=== PATIENT | male | born 1960 | race Caucasian/White ===

== ENCOUNTER 2022-05-11 01:29 | Day surgery (SDC) | payer OTHER, SELFPAY ==
[2022-04-28 09:02] VITALS: BMI 24.6
[2022-05-11 11:41] VITALS: BP 146/90; PULSE 117; RESP 18; TEMP 36.5; O2SAT 98
[2022-05-11] MEDS: LACTATED RINGERS 1,000 ML 150 ML IV CONT (11:47)
--- NOTE | 2022-05-11 11:49 | PM.HPGS ---
History of Present Illness History of Present Illness Consent: Risks, benefits, and alternatives have been discussed and questions answered. Patient agrees to proceed with procedure. Chief complaint: neoplasm screening Narrative: Alin Jackson is a 61 year old male here for screening colonoscopy, had one about 12 years ago but could not complete, also was told that removed one polyp Review of Systems Constitutional: Constitutional: Denies headache(s) and Denies weakness Eyes: Eyes: Denies blurry vision ENT: Reports Normal hearing present, Denies headache(s) and Denies neck pain Cardiovascular: Cardiovascular: Denies chest pain and Denies dyspnea Respiratory: Respiratory: Denies dyspnea Gastrointestinal: Gastrointestinal: Reports no additional gastrointestinal complaints Genitourinary: Genitourinary: Denies dysuria Musculoskeletal: Musculoskeletal: Denies neck pain Integumentary/Breasts: Skin/Breast: Denies dry skin Neurologic: Reports Normal hearing present, Denies headache(s) and Denies weakness Psychiatric: Psychiatric: Denies anxiety Endocrine: Endocrine: Denies change in body appearance Hematologic/Lymphatic: Hematologic/Lymphatic: Denies easy bleeding Allergic/Immunologic: Allergic/Immunologic: Denies urticaria PMFSH Past Medical History Medical History (Updated 05/11/22 @ 11:50 by Josh Lemus MD) Colon cancer screening Social History Social History Smoking packs per day: 1 Smoking cigarettes per day: 20.0 Smoking status: Current every day smoker Tobacco type: cigarettes Meds Home Medications and Allergies Home Medications Medication Instructions Recorded Confirmed Type diclofenac sodium 75 mg 75 mg PO DAILY 04/28/22 04/28/22 History tablet,delayed release gabapentin 600 mg tablet 600 mg PO DAILY 04/28/22 04/28/22 History Allergies Allergy/AdvReac Type Severity Reaction Status Date / Time No Known Allergies Allergy Mild Verified 05/11/22 11:39 Vital Signs Vital Signs - 24 hr 05/11/22 11:41 Temperature 97.7 F Pulse Rate 117 H Respiratory Rate 18 Blood Pressure 146/90 H Pulse Oximetry 98 Oxygen Delivery Room Air Exam Const: General: comfortable and no acute distress HENMT: Face/Nose/Sinus: Normal nares present Eyes: General: appearance normal, both eyes and all related structures Neck: Neck: no JVD Resp: Auscultation: clear to auscultation bilaterally Cardio: Rate: regular rate Rhythm: regular rhythm GI: Inspection: non-distended GI Palp: Yes Soft to palpation Skin: General skin exam: normal color Neuro: General: gait normal Speech: normal speech Extrem: General: normal to inspection Psych: Mental Status: mental status grossly normal Assessment and Plan Assessment and plan (1) Colon cancer screening: Code(s): Z12.11 - Encounter for screening for malignant neoplasm of colon Status: Acute Assessment and Plan: colonoscopy
--- NOTE | 2022-05-11 11:53 | P.PNAN_ITS ---
Anes - Initial Pre Proc Eval Procedure: Operation Date: 05/11/22 13:30 Proposed Procedures p Screening Colonoscopy - Josh Lemus MD Date/Time: 05/11/22 11:53 Surgeon: Josh Lemus MD Pre Op Diagnosis: neoplasm screening Patient Data Age: 61 Gender: M Height: 1.7 m Weight: 70.2 kg Last Vital Signs Temp 97.7 F 05/11/22 11:41 Pulse 117 H 05/11/22 11:41 Resp 18 05/11/22 11:41 BP 146/90 H 05/11/22 11:41 Pulse Ox 98 05/11/22 11:41 O2 Del Method Room Air 05/11/22 11:41 Allergies Allergy/AdvReac Type Severity Reaction Status Date / Time No Known Allergies Allergy Mild Verified 05/11/22 11:39 Home Medications Medication Instructions Recorded Confirmed Type diclofenac sodium 75 mg 75 mg PO DAILY 04/28/22 04/28/22 History tablet,delayed release gabapentin 600 mg tablet 600 mg PO DAILY 04/28/22 04/28/22 History Patient hx anesthesia problems: none Family hx anesthesia problems: none Results Review: All pre-operative results and documents have been reviewed as part of the pre- operative evaluation. [facility] Past Medical History Medical History (Updated 05/11/22 @ 11:50 by Josh Lemus MD) Colon cancer screening Social History Social History Smoking packs per day: 1 Smoking cigarettes per day: 20.0 Smoking status: Current every day smoker Tobacco type: cigarettes Anes - Eval Final PreProcedure Day of Procedure 05/11/22 11:53 Patient weight: normal Heart: regular rate and rhythm Lungs: clear to auscultation Airway: Mallampati scale class II Neurological: alert and oriented Last oral intake: >/= 8 hours ASA classification: II Emergent: no Anesthetic plan: proceed Anesthesia type and monitoring: general GIVS and standard monitoring Results Review: All pre-operative results and documents have been reviewed as part of the pre- operative evaluation. Informed Consent: The patient's anesthetic plan and its attendant risks and benefits were discussed with the patient/family/POA. Questions were solicited and answers provided to the satisfaction of the patient/family/POA.
[2022-05-11 12:10] VITALS: BP 105/75; PULSE 97; RESP 28; O2SAT 95
[2022-05-11 12:20] VITALS: BP 112/78; PULSE 93; RESP 26; O2SAT 97
[2022-05-11 12:30] VITALS: BP 130/88; PULSE 89; RESP 24; O2SAT 98
== END 2022-05-11 12:50 | disposition home or self-care (01) ==
PROVIDERS: PCP Internal Medicine; Visit Provider Internal Medicine Gastroenterology
PROC: 0DJD8ZZ Inspection of Lower Intestinal Tract, Via Natural or Artificial Opening Endoscopic (ICD-10-PCS; CPT 45378; principal; 2022-05-11 13:30)
DX: Z12.11 Encounter for screening for malignant neoplasm of colon (principal); D12.5 Benign neoplasm of sigmoid colon; K64.8 Other hemorrhoids; F17.210 Nicotine dependence, cigarettes, uncomplicated
CPT/HCPCS: 45385; 88305; 88342; J2704; J7120

== ENCOUNTER 2024-10-06 09:32 | Outpatient (CLI) | payer OTHER, SELFPAY ==
--- NOTE | ~2024-10-06 | XR_ITS ---
XR cervical spine 4-5V 10/06/2024 09:54 Indication: Chronic neck pain Procedure: 5 views cervical spine including flexion/extension views Comparison: No prior studies for comparison. Findings: Accentuated cervical lordosis. Vertebral body heights are maintained. No prevertebral soft tissue swelling. Lung apices are unremarkable. There is carotid atherosclerosis. Lateral masses larry lly aligned. No significant disc narrowing. There is mild multilevel facet hypertrophy. Impression: 1: Mild cervical spondylosis. Reviewed, dictated and finalized at location A. Impression: 1: Mild cervical spondylosis.
--- OUTSIDE RECORDS SUMMARY | 2024-10-06 09:39 | XMS_ITS | CONTINUITY OF CARE DOCUMENT ---
Author Name romario doss Address Unknown Organization [facility] Office Address [address] [place] [address] [address] [place] [address] Phone [phone] Care Team Providers Care Liquor Bridge Operator Helper Name Role Phone Devon Sanchez MD Unavailable [phone] Devon Sanchez MD Unavailable [phone] INSURANCE PROVIDERS Payer name Policy type / Coverage type [place] [employer] [place] MED[place] Medicaid [id number]
--- OUTSIDE RECORDS SUMMARY | 2024-10-06 09:40 | XMS_ITS | Clinical Summary ---
Author Organization [facility] Address [address] [place] [address] Care Team Providers Care Rag Washer Name Role Phone Unavailable Primary Care Provider Unavailabl e Source Comments PLEASE NOTE, if this patient is a minor, it may be UNLAWFUL to discuss sensitive information that is contained in these records (such as FAMILY PLANNING, MENTAL HEALTH or SUBSTANCE ABUSE) with the minor patient's parent or other person without the patient's specific authorization.[facility] Allergies No known active allergies Medications * This document contains information received from the source organization and may not represent a complete record from that organization. escitalopram oxalate (LEXAPRO) 10 mg tablet Take 1 Tab by mouth once daily. Take one half tab for the first week then increase to one full tab. 30 Tab 0 10/31/2014 Active HYDROcodone-kate taminophen (NORCO) 5-325 mg per tablet Take 1 Tab by mouth every 6 (six) hours as needed for pain 06/17/2016 Active Active Problems Problem Noted Date Diagnosed Date Hyperplastic polyp of sigmoid colon 06/04/2016 Overview (06/04/2016): Colonoscopy 05/12/16 - One 5mm polyp in sigmoid resected - path report shows hyperplastic polyp - sharp angulation at 30 cm from anus prevented further advancement. Recommended CT colonography in 1 month for eval of proximal colon. Hemorrhoids, internal 06/04/2016 Overview (06/04/2016): Non bleeding internal hemorrhoids noted on colonoscopy 05/12/16 Herniated lumbar intervertebral disc 01/02/2016 Chronic low back pain 01/02/2016 Depression 10/22/2014 Overview (11/05/2014): Side effects with Citalopram 10mg titrated up to 20mg 10/31/14 started on Escitalopram 5mg titrate up to 10mg History of substance abuse ([facility] 10/22/2014 Overview (10/22/2014): No street drugs since 2009 Tobacco use 10/22/2014 Alcohol use 10/22/2014 Elevated BP 10/22/2014 Immunizations Immunization Administration Dates Next Due TDAP 10/22/2014 Social History Tobacco Use Types Packs/Day Years Used Date Smoking Tobacco: Every Day Cigarettes Smokeless Tobacco: Never Comments:smoke less if worki ng Alcohol Use Standard Drinks/Week Comments Yes 14 (1 standard drink = 0.6 oz pure alcohol) couple beers with shot to help sleep Social Connections Answer Date Recorded Social Connections and Isolation 0 12/24/2018 Financial Resource Strain Answer Date R ecorded Financial Resource Strain 0 2018 Stress Answer Date Recorded Stress 0 12/24/2018 Physical Activity Answer Date Recorded Physical Activity 0 12/24/2018 Food Insecurity Answer Date Recorded Food 0 12/24/2018 Transportation Needs Answer Date Record ed Transportation 0 12/24/2018 Housing Stability Answer Date Recorded Housing 0 12/24/2018 Safety and Environment Answer Date Jai rded Safety 0 12/24/2018 Utilities Answer Date Recorded Utilities 0 12/24/2018 Employment Answer Date Recorded Employment 0 12/24/2018 Sex and Gender Information Value Date Recorded Sex Assigned at Not on file Legal Sex Male 4:01 AM PDT Gender Identity Not on file Sexual Orientation Not on file Last Filed Vital Signs Vital Sign Reading Time Taken Comments Blood Pressure 126/88 06/17/2016 9:01 AM PST Pulse 80 06/17/2016 9:01 AM PST Temperature 36.9 C (98.4 F) 12/19/2015 10:04 AM PDT Respiratory Rate 18 10/22/2014 1:46 PM PDT Oxygen Saturation - - Inhaled Oxygen Concentration - - Weight 72.1 kg (159 lb) 06/17/2016 9:01 AM PST Height 170.2 cm (5' 7) 06/17/2016 9:01 AM PST Body Mass Index 24.9 06/17/2016 9:01 AM PST Plan of Treatment Not on file Insurance [facility] MEDICAID - [place] Member Subscriber Plan / Payer (Ef fective 2014-Present) Name:Alin Jackson Relation to Subscriber:Self Name:Alin Jackson Payer ID:[id number] Group ID:[id number] Type:Medicaid Address: [facility] [address] [place] [address]
--- OUTSIDE RECORDS SUMMARY | 2024-10-06 09:40 | XMS_ITS | Data Portability ---
Author Organization [place] [facility], Main Office Address [address] [place] [address] Care Team Providers Care Brine Maker Name Role Phone ELAINA ASHTON Primary Care Provider ELAINA ASHTON Referring Provider Assessment Encounter Date Assessment Date Assessment LastModified by Organization Details LastModified Time 09/26/2024 09/26/2024 63-year-old patient presents today with right shoulder pain that has been going on for many years but has recently gotten worse. 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 He has pain with overhead lifting and pain at night. He denies any specific injuries. He takes naproxen and gabapentin for pain. He is right-handed. He states he also has pain in his right knee and in his neck and spine. Review of systems per patient questionnaire Imaging: X-rays reviewed of the right shoulder show no acute bony abnormality or fracture. Mild degenerative osteoarthritic changes with some small osteophyte formation and AC joint arthrosis. Physical exam: Tenderness to palpitation over anterior and posterior shoulder. ROM 150/40/lower lumbar. 5/5 rotator cuff strength. Pain with resisted elevation. Positve cortes george hawkins. Sesnation intact. We discussed he is likely experiencing rotator cuff and biceps tendinitis. We recommend a course of physical therapy. He would like to try this on his own so a exercise handout was given. He can continue taking the naproxen. We discussed risks and benefits of a cortisone injection. He elected to proceed with that today. We will see him back for his knee and follow up with the shoulder at that time. He would like a spine referral so we will place that for him as well. [email or web address] Not available 09/26/2024 15:31:03 Plan of Treatment Reminders Order Date Submit Date Provider Last Modified By Organization Details Last Modified Time Details Appointments Any 10 2024 01:50P M Crys Mckeon NP Not available Not available Not available Lab None recorded. Referral orthopedi c spine surgeon referral - Please contact pt to schedule apt for neck pain. Thanks 2024 025 JORY Madden MD, [address], [place], [address], 09/27/2024 08:45:25 Procedures injection /aspirati on joint/bur sa (PROC) 2024 025 [email or web address] 1 In-Office Order, Internal Use Only DO Not Attach Compendium DO Not Attach Compendium, Do Not Delete/merge, [id number] 09/26/2024 15:10:38 Surgeries None recorded. Imaging XR, shoulder, 2 or more view 2024 025 [facility], [address] [place] [address], [phone], 09/26/2024 15:17:15 Medication Orders bupivacai ne HCl 0.5 % (5 mg/mL) injection solution 2024 025 [id number], [address] [facility], [place], [place], [phone], 09/26/2024 15:40:44 Kenalog 10 mg/mL suspensio n for injection 2024 025 [facility] #[id number], [address] [facility] [facility], [place], [place], [phone], 09/26/2024 15:40:44 Patient TargetsNo targets recorded. Patient InstructionsNo instructions recorded. Reason for Referral Orthopedic Spine Surgeon Ref erral for Neck pain neck pain Please contact pt to schedule apt for neck pain. Thanks Referring Physician: Crys Mckeon, Orthopedic Surgery, Encounter Date: 09/26/2024 Results Created Date Observation Date Name Description Value Unit Range Abnormal Flag Note LastModifiedBy Organization Detail LastModifiedTime 12/13/19 24 04/12/2023 XR, knee, 1 or 2 view No observ ation record ed. [email or web address] Not Available 12/01 14:39:50 09/27/19 25 XR, shoul kelley, 2 or more view No observ ation record ed. [email or web address] [facility] [address] [facility], [place], [address], 09/26/2024 15:17:13 Result Notes None recorded. Problems Name Problem SNOMED Code Status Onset Date Resolution Date Notes Provider Name and Address Organization Details Recorded Time Pain of right shoulder region Active 025 Michelle Ashton RMA null, [facility] 5 14:50:55 Neck pain 92494141 Active 025 Nhung Shetty ATC L null, [facility] 5 15:11:06 Problem Notes None recorded. Procedures Surgical History Date Name Laterality Status Provider Name and Address Organization Details Recorded Time Ortho - Cortisone Injection completed Crys Mckeon NP [address] [facility], [facility] [address], [place], [address], [facility] 09/26/2024 15:17:25 1 excision completed Not Available [facility] 3 23:02:09 other completed Not Available [facility] 05/2022 23:02:09 Imaging Results None recorded. Procedure Notes None recorded. Medical Equipment None Reported. Medications Name Sig Start Date Stop Date Status Note LastModified by Organization Details LastModified Time tizanidine 4 mg tablet 10/31 completed Not Available Not Available Not Available bupivacaine HCl 0.5 % (5 mg/mL) injection solution Take 4 mL by injection route. 2024 active Not Available Not Available Not Avai lable clindamycin HCl 150 mg capsule 11/21 completed Not Available Not Available Not Available propranolol 10 mg tablet Take by oral route. 06/30/ 2021 07/01 /2021 completed Not Available Not Available Not Available Kenalog 10 mg/mL suspension for injection Take 1 mL by injection route. [address] [facility]: [phone] Not Available Not Available Not Available gabapentin 300 mg capsule 09/26 completed Not Available Not Available Not Available gabapentin 100 mg capsule 10/31 completed Not Available Not Available Not Available fluoxetine 20 mg capsule 09/26 completed Not Available Not Available Not Available duloxetine 30 mg capsule,del ayed release 09/26 completed Not Available Not Available Not Available gabapentin 10/31 completed Not Available Not Available Not Available Vitals Date Recorded Body height Body mass index (BMI) Body weight Provider Name and Address Organization Details Last Updated DateTime 09/26/2024 167.64 cm 25.8 kg/m2 23845.78 g RADHA Anderson [place] [facility] [place] [employer] [facility] 09/26/2024 14:48:03 Date Recorded Body mass index (BMI) Body height Oxygen saturation Oxygen saturation in Arterial blood by Pulse oximetry Heart rate Respiratory rate Body temperature Body weight Systolic blood pressure Diastolic blood pressure Provider Name and Address Organization Details Last Updated DateTime 1 26.6 kg/m2 165.1 cm 98 % 98 % 66 /min 12 /min 98.6 [degF] 37387.7 8 g 110 mm[Hg] 70 mm[Hg] Not Available [facility] 3 23:02:28 Date Recorded Body mass index (BMI) Body height Body temperature Body weight Provider Name and Address Organization Details Last Updated DateTime 11/12/2020 26.6 kg/m2 165.1 cm 98 [degF] 07617.78 g Not Available [facility] 07/01/2022 23:02:28 Date Recorded Body mass index (BMI) Body height Oxygen saturation Oxygen saturation in Arterial blood by Pulse oximetry Heart rate Respiratory rate Body temperature Body weight Systolic blood pressure Diastolic blood pressure Provider Name and Address Organization Details Last Updated DateTime 1 26.6 kg/m2 165.1 cm 98 % 98 % 66 /min 12 /min 98.6 [degF] 04465.7 8 g 110 mm[Hg] 70 mm[Hg] Not Available [facility] 23:02:28 Social History Question Answer Notes LastModified by Organizat ion Details LastModified Time Tobacco Smoking Status Current Every Day Smoker Not Available [facility] 07/01/2022 23:02:04 What Is Your Level Of Caffeine Consumption? Occasional [id number] Information not available 07/01/2022 How Much Tobacco Do You Chew? None [id number] Information not available 07/01/2022 What Type Of Diet Are You Following? REGULAR [id number] Information not available 07/01/2022 What Was The Date Of Your Most Recent Tobacco Screening? 09/26/2024 [email or web address] Information not available 09/26/2024 At What Age Did You Start Smoking Tobacco? 22 [id number] Information not available 07/01/2022 How Much Tobacco Do You Smoke? 1 PPD [id number] Information not available 07/01/2022 Sex: Unknown Functional Status Question Answer Note LastModified by Organizat ion Details LastModified Time What is your level of alcohol consumption? None [id number] Information not available 07/01/2022 Do you or have you ever used smokeless tobacco? 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 Never used electronic cigarettes [id number] Information not available 07/01/2022 What is your exercise level? Occasional [id number] Information not available 07/01/2022 Mental Status None recorded. Family History Relationship Description Onset Age of this Age Resolved Age Notes LastModified by Organization Details LastModified Time Father No current problems or disability [id number] Not available 07/01/2022 23:02:10 Mother No current problems or disability [id number] Not available 07/01/2022 23:02:10 Sister History of malignant neoplasm [email or web address] Not available 2024 14:49:31 Medical History Condition Response ARTHRITIS Y Past Encounters Encounter ID Performer Location Encounter Start Date Encounter Closed Date Diagnosis/Indication Diagnosis SNOMED-CT Code Diagnosis ICD10 Code Diagnosis Note [id number] Dell garcia MD [facility] General Surgery [address] [address] 10/31/2020 00:00:00 10/31/2020 13:57:41 [id number] Dell garcia MD [facility] General Surgery [address] [address] 11/12/2020 00:00:00 11/19/2020 15:21:12 [id number] Dell garcia MD [facility] General Surgery [address] [address] 11/21/2020 00:00:00 11/21/2020 13:58:55 [id number] Jordan Dawson MD [address] [address] 09/26/2024 14:34:15 09/26/2024 15:15:56 Pain of right shoulder region 2089619614 M25.511 Neck pain 25104579 M54.2 Health Concerns Section Related Observation LastModified by Organization Detai ls LastModified Time None Recorded Concern Status LastModified by Organization Details LastModified Time None Recorded Advance Directives Directive None Recorded Payers Encounter Date Sequence Insurance Name Policy Number Policy Gibbs Covered Member ID Gibbs Member ID Guarantor Name 09/26/2024 1 [facility] (MEDICAID HMO) [id number] Alin Jackson [id number] Alin Jackson
--- OUTSIDE RECORDS SUMMARY | 2024-10-06 09:40 | XMS_ITS | Clinical Summary ---
Author Organization [facility] Address [address] [place] [address] Care Team Providers Care Police Commanding Officer Name Role Phone ProsperAlicia Jackson APRN-AUTOMOBILE BRAKES BONDER Primary Care Provid er Source Comments [facility],non-owned Affiliates and Associated Physician Practices is amultiple site organization consisting of ambulatory clinics and hospital sitesin [place], [place], [place] and [place]. This disclosure is being madepursuant to the Care Everywhere program and may not contain all information available regarding this patient. Last updated 18.[facility] Allergies No known active allergies Medications * Be aware that medications may not be up to date on this document. Alwaysverify current medications with the patient. 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/2020 Family History Medical History Relation Name Comments None Known Brother None Known Father None Known Maternal Aunt None Known Maternal Grandfather None Known Maternal Grandmother None Known Maternal Uncle None Known Mother None Known Other None Known Paternal Aunt None Known Paternal Grandfather None Known Paternal Grandmother None Known Paternal Uncle None Known Sister Asthma Neg Hx CVA Neg Hx Cancer - Breast Neg Hx Cancer - Other Neg Hx Cancer - Skin, Melanoma Neg Hx Cancer - Skin, Non Melanoma Neg Hx Eczema Neg Hx Hemophilia Neg Hx Psoriasis Neg Hx Relation Name Status Comments Brother Father Maternal Aunt Maternal Grandfather Maternal Grandmother Maternal Uncle Mother Other Paternal Aunt Paternal Grandfather Paternal Grandmother Paternal Uncle Sister Social History Tobacco Use Types Packs/Day Years Used Date Smoking Tobacco: Every Day Cigarettes Smokeless Tobacco: Current Tobacco Cessation:Counseling Given: No Alcohol Use Standard Drinks/Week Comments Never 0 (1 standard drink = 0.6 oz pur e alcohol) Sex and Gender Information Value Date Recorded Sex Assigned at Not on file Legal Sex Male 1:26 PM CDT Gender Identity Not on file Sexual Orientation Not on file Plan of Treatment Health Maintenance Due Date Last Done Comments COLOGUARD (AGES 45-75) - COL ON CA SCREENING 1962 COLON MONITORING 1962 COLONOSCOPY - COLON CA SCREENING 1962 CT COLONOGRAPHY - COLON CA SCREENING 1962 Colorectal Cancer Screening 1962 FIT - COLON CA SCREENING 1962 FLEX SIG - COLON CA SCREENING 1962 LIPID TESTING 1962 HIV SCREENING 1977 HEPATITIS C SCREENING 11/29/1980 DTAP/TDAP/TD VACCINES (1 - Tdap) 1981 PNEUMOCOCCAL VACCINE 50+ (1 of 1 - PCV) 2012 ZOSTER VACCINE (1 of 2) 2012 COVID-19 VACCINE (1 - 2023-2 5 season) 2024 DEPRESSION SCREENING 05/03/2024 INFLUENZA VACCINE (Season Ended) 2025 Respiratory Syncytial Virus (RSV) Vaccine Pt: or over 60 yrs (1 - 1-dose 75+ series) 2037 HEPATITIS B VACCINE Aged Out No longe r eligible based on patient's age to complete this topic HIB VACCINE Aged Out No longer eligi ble based on patient's age to complete this topic HPV VACCINE Aged Out No longer eligi ble based on patient's age to complete this topic MENINGOCOCCAL (Group B) VACC INE SHARED DECISION-MAKING Aged Out No longer eligibl e based on patient's age to complete this topic MENINGOCOCCAL GROUPS A/C/Y/W VACCINE Aged Out No longer eligible b ased on patient's age to complete this topic [place] [address] [address] [address] Care Teams Police Commanding Officer Relationship Specialty Start Date End Date Alicia Helms APRN-AUTOMOBILE BRAKES BONDER [address] [address] PCP - General 09/25/20
== END 2024-10-06 09:33 | disposition home or self-care (01) ==
PROVIDERS: PCP Internal Medicine; Visit Provider Nurse Practitioner Family
DX: M47.892 Other spondylosis, cervical region (principal)
CPT/HCPCS: 72050

== ENCOUNTER 2024-10-21 11:23 | Outpatient (CLI) | payer OTHER, SELFPAY ==
--- NOTE | ~2024-10-21 | XR_ITS ---
Lumbosacral Spine: AP and lateral views Clinical History: Pain Findings: The normal lordotic curve is maintained. The vertebral bodies and posterior elements are i ntact. There is moderate facet arthropathy lower lumbar spine. No instability evident on flexion or e xtension. There are minimal degenerative disc changes. The sacroiliac joints are normally outlined. Impression: Urtd-uc-slzfmqss degenerative spondylosis, as above. Reviewed, dictated and finalized at location M. Impression: Mpoy-zi-iguwqhgp degenerative spondylosis, as above.
== END 2024-10-21 11:24 | disposition home or self-care (01) ==
PROVIDERS: PCP Internal Medicine; Visit Provider Nurse Practitioner Adult Health
DX: M47.26 Other spondylosis with radiculopathy, lumbar region (principal)
CPT/HCPCS: 72110

== ENCOUNTER 2024-11-11 09:43 | Outpatient (CLI) | payer OTHER, SELFPAY ==
--- NOTE | ~2024-11-11 | MR_ITS ---
MRI of the lumbar spine Clinical History: Radiculopathy Technique: Axial T2-weighted images, and sagittal T1-weighted, T2-weighted, and T2 fat-sat images wer e acquired. Findings: There is no fracture of the lumbar spine. There is minimal grade 1 retrolisthesis of L3 ove r L4, L4-L5, and L5 over S1. No suspicious bone marrow signal abnormality seen. At L1-L2 and L2-L3, the intervertebral discs maintain normal signal and position. No disc bulge or he rniation these levels. No spinal canal stenosis or neural foraminal narrowing. At L3-L4, there is degenerative disc narrowing with minimal disc bulge and minimal facet arthropathy. No central canal stenosis. There is mild bilateral neural foraminal narrowing. At L4-L5, there is moderate degenerative distended. There is diffuse disc bulge with superimposed elian tral disc protrusion. There is moderate facet arthropathy. There is mild central canal stenosis. Ther e is moderate left neural foraminal narrowing, and mild right neural foraminal narrowing. L5-S1, there is mild disc bulge and moderate facet arthropathy. No central canal stenosis. There is m oderate left neural foraminal narrowing, and mild right neural foraminal narrowing. Paravertebral soft tissues are unremarkable. Impression: Moderate degenerative spondylosis overall, as detailed above. Multiple grade 1 retrolistheses, as above. Reviewed, dictated and finalized at location M. Impression: Moderate degenerative spondylosis overall, as detailed above. Multiple grade 1 retrolistheses, as above.
--- OUTSIDE RECORDS SUMMARY | 2024-11-11 09:48 | XMS_ITS | Clinical Summary ---
Author Organization [facility] Address [address] [place] [address] Care Team Providers Care Ship Ceiler Name Role Phone Unavailable Primary Care Provider [...] up to 10mg History of substance abuse ([facility]) 10/22 Overview (10/22/2014): No street drugs since 2009 [...] Plan of Treatment Not on file Insurance [facility] MEDICAID - [place] Member Subscriber Plan / Payer (Ef fective 2014-Present) Name:Alin Jackson Relation to Subscriber:Self Name:Alin Jackson Payer ID:[id number] Group ID:[id number] Type:Medicaid Address: [facility] [address] [place] [address]
--- OUTSIDE RECORDS SUMMARY | 2024-11-11 09:48 | XMS_ITS | Data Portability ---
Author Organization [facility], Main Office Address [address] [place] [address] Care Team Providers Care Monitor Tech Name Role Phone ELAINA ASHTON Primary Care Provider ELAINA ASHTON Referring Provider Assessment Encounter Date Assessment Date Assessment LastModified by Organization Details LastModified Time 09/26/2024 09/26/2024 63-year-old patient presents today with right shoulder pain that has been going on for many years but has recently gotten worse. 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 Not available 09/26/2024 15:31:03 10/10/2024 10/10/2024 63-year-old patient presents today for new problem of right knee pain that has been going on for a few years but recently got worse. States that he did not have an injury. He has pain with kneeling, running and twisting motions. Sometimes he feels a catching in the knee. For treatment he has tried Aleve, which helps. He rates the pain 5/10. Imaging: X-rays reviewed of the right knee show moderate to severe degenerative osteoarthritic changes with medial asrw-se-jfih and osteophyte formation throughout. physical exam: Tenderness with palpation along medial joint line. Range of motion 0 to 130. Pain with deep flexion. Positive Evangelist's. Stable Bruno's, varus/valgus stress. Sensation intact. He is starting PT for his shoulder soon so we will add his knee to the order. He would like to continue taking Aleve as needed. We discussed that today he could try a cortisone injection. He does not want to proceed with this today. He states he will do the PT and call us if he changes his mind. We can see him back as needed for pain. Not available 10/11/2024 15:38:57 Plan of Treatment Reminders Order Date Submit Date Provider Last Modified By Organization Details Last Modified Time Details Appointments None recorded. Lab None recorded. Referral physical therapist referral - Please schedule pt for R knee pain. Thanks 2024 025 [facility] [place], [address] [place] [address], [id number], 10:26:35 orthopedic spine surgeon referral - Please contact pt to schedule apt for neck pain. Thanks 2024 025 PARAG Madden MD, [address] [facility] [address], [place], [address], 10:00:04 Procedures injection/ aspiration joint/burs a (PROC) 2024 025 [email or web address] 1 In-Office Order, Internal Use Only DO Not Attach Compendium DO Not Attach Compendium, Do Not Delete/merge, [id number] 15:10:38 Surgeries None recorded. Imaging XR, knee, 4 or more view 2024 025 [facility] [place], [address], [place], [address], 5 15:29:44 XR, shoulder, 2 or more view 2024 025 [facility], [address] [facility], [place], [address], 5 15:17:15 Medication Orders bupivacain e HCl 0.5 % (5 mg/mL) injection solution [address] [id number], [address] [facility], [place], [place], [phone], 15:40:44 Kenalog 10 mg/mL suspension for injection [address] [id number], [address] [facility], [place], [place], [phone], 15:40:44 Patient TargetsNo targets recorded. Patient InstructionsNo instructions recorded. Reason for Referral Orthopedic Spine Surgeon Ref erral for Neck pain neck pain Please contact pt to schedule apt for neck pain. Thanks Referring Physician: Crys Mckeon, Orthopedic Surgery, Encounter Date: 09/26/2024 Physical Therapist Referral for Arthritis of right knee R knee Please schedule pt for R knee pain. Thanks Referring Physician: Crys Mckeon, Orthopedic Surgery, Encounter Date: 10/10/2024 Results Created Date Observation Date Name Description Value Unit Range Abnormal Flag Note LastModifiedBy Organization Detail LastModifiedTime 12/13/19 24 04/12/2023 XR, knee, 1 or 2 view No observ ation record ed. [email or web address] Not Available 12/01 14:39:50 09/27/19 25 XR, shoul kelley, 2 or more view No observ ation record ed. [email or web address] [facility] [address], [place], [address], 09/26/2024 15:17:13 10/07/19 25 10/06/2024 XR, cervi david spine , 4 or 5 view No observ ation record ed. [address], [place], [address], 10/06/2024 14:32:38 10/11/19 25 XR, knee, 4 or more view No observ ation record ed. [email or web address] [facility] [address], [place], [address], 10/11/2024 15:29:44 Result Notes None recorded. Problems Name Problem SNOMED Code Status Onset Date Resolution Date Notes Provider Name and Address Organization Details Recorded Time Pain of right shoulder region Active 2024 RADHA Anderson, [facility] 5 14:50:55 Neck pain 19461732 Active 2024 Nhung Shetty ATC L null, [facility] 5 15:11:06 Pain of right knee region 54914453963167 5 Active 2024 RADHA Anderson, [facility] 5 14:57:00 Chronic pain of right upper limb 96272879154593 108 Active 2024 Nhung Shetty ATC L null, [facility] 5 15:31:14 Pain of knee region 5941475091 Active 2024 Nhung Shetty ATC L null, [facility] 5 15:31:29 Arthritis of right knee 46466656489547 02 Active 2024 Nhung Shetty ATC L null, [facility] 5 15:31:47 Problem Notes None recorded. Procedures Surgical History Date Name Laterality Status Provider Name and Address Organization Details Recorded Time Ortho - Cortisone Injection completed Crys Mckeon NP [address], [address], [place], [address], [facility] 09/26/2024 15:17:25 1 excision completed Not Available [facility] 3 23:02:09 other completed Not Available [facility] 05/2022 23:02:09 Imaging Results None [...] 10 mg tablet Take by oral route. 10/31 completed Not Available Not Available Not Available Kenalog 10 mg/mL suspension for injection Take 1 mL by injection route. 2024 active [facility]: [phone] Not Available Not Available [...] Updated DateTime 09/26/2024 167.64 cm 25.8 kg/m2 10502.78 g RADHA Anderson [facility] 09/26/2024 14:48:03 Date Recorded Body height Body mass index (BMI) Body weight Provider Name and Address Organization Details Last Updated DateTime 10/10/2024 167.64 cm 25.8 kg/m2 92746.78 g RADHA Anderson [place] [facility] [place] [facility] 10/10/2024 14:56:17 Date Recorded Body mass index (BMI) Body height Oxygen saturation Oxygen saturation in Arterial blood by Pulse oximetry Heart rate Respiratory rate Body temperature Body weight Systolic And Diastolic Provider Name and Address Organization Details Last Updated DateTime 1 26.6 kg/m2 165.1 cm 98 % 98 % 66 /min 12 /min 98.6 [degF] 17650.7 8 g 110/70 mm[Hg] Not Available [facility] 3 23:02:28 Date Recorded Body mass index (BMI) Body height Body temperature Body weight Provider Name and Address Organization Details Last Updated DateTime 11/12/2020 26.6 kg/m2 165.1 cm 98 [degF] 06308.78 g Not Available [facility] 07/01/2022 23:02:28 Date Recorded Body mass index (BMI) Body height Oxygen saturation Oxygen saturation in Arterial blood by Pulse oximetry Heart rate Respiratory rate Body temperature Body weight Systolic And Diastolic Provider Name and Address Organization Details Last Updated DateTime 1 26.6 kg/m2 165.1 cm 98 % 98 % 66 /min 12 /min 98.6 [degF] 16389.7 8 g 110/70 mm[Hg] Not Available [facility] 3 23:02:28 Social History Question Answer Notes LastModified by Organizat ion Details LastModified Time Tobacco Smoking Status Current Every Day Smoker Not Available [facility] 07/01/2022 23:02:04 What Is Your Level Of Caffeine Consumption? Occasional [id number] Information not available 07/01/2022 How Much Tobacco Do You Chew? None [id number] Information not available 07/01/2022 What Type Of Diet Are You Following? REGULAR [id number] Information not available 07/01/2022 What Was The Date Of Your Most Recent Tobacco Screening? 09/26/2024 [email or web address] Information not available 09/26/2024 At What Age Did You Start Smoking Tobacco? 22 [id number] Information not available 07/01/2022 How Much Tobacco Do You Smoke? 1 PPD [id number] Information not available 07/01/2022 Sex: Unknown Functional Status Question Answer Note LastModified by Organizat ion Details LastModified Time What is your level of alcohol consumption? None [id number] Information not available 07/01/2022 Do you or have you ever used smokeless tobacco? 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 Never used electronic cigarettes [id number] Information not available 07/01/2022 What is your exercise level? Occasional [id number] Information not available 07/01/2022 Mental Status None recorded. Family History Relationship Description Onset Age of this Age Resolved Age Notes LastModified by Organization Details LastModified Time Father No current problems or disability [id number] Not available 07/01/2022 23:02:10 Mother No current problems or disability [id number] Not available 07/01/2022 23:02:10 Sister History of malignant neoplasm [email or web address] Not available 2024 14:49:31 Medical History Condition Response ARTHRITIS Y Past Encounters Encounter ID Performer Location Encounter Start Date Encounter Closed Date Diagnosis/Indication Diagnosis SNOMED-CT Code Diagnosis ICD10 Code Diagnosis Note [id number] Dell garcia MD [facility] General Surgery [address] [address] 10/31/2020 00:00:00 10/31/2020 13:57:41 [id number] Dell garcia MD [facility] General Surgery [address] [address] 11/12/2020 00:00:00 11/19/2020 15:21:12 [id number] Dell garcia MD [facility] General Surgery [address] [address] 11/21/2020 00:00:00 11/21/2020 13:58:55 [id number] Jordan Dawson MD [facility] [address] [address] 09/26/2024 14:34:15 09/26/2024 15:15:56 Pain of right shoulder region 5681929588 M25.511 Neck pain 60419737 M54.2 [id number] Jordan Dawson MD [facility] [address] [address] 10/10/2024 14:39:39 10/10/2024 15:39:17 Chronic pain of right upper limb 9710655272 0837967 M25.511 G89.29 Arthritis of right knee 3157540568 112334 M17.11 Health Concerns Section Related Observation LastModified by Organization Detai ls LastModified Time None Recorded Concern Status LastModified by Organization Details LastModified Time None Recorded Advance Directives Directive None Recorded Payers Insurance Date Sequence Insurance Name Policy Number Policy Gibbs Covered Member ID Gibbs Member ID Guarantor Name 10/17/2024 1 [facility] (MEDICAID HMO) [id number] Alin Jackson [id number] Alin Jackson
--- OUTSIDE RECORDS SUMMARY | 2024-11-11 09:48 | XMS_ITS | Clinical Summary ---
Author Organization [facility] Address [address] [place] [address] Care Team Providers Care Assisted Living Housekeeper Name Role Phone ProsperAlicia Jackson APRN-AIRCRAFT CYLINDER MECHANIC Primary Care Provid er Source Comments [facility],non-owned Affiliates and Associated Physician Practices is amultiple site organization consisting of ambulatory clinics and hospital sitesin [place], [place], [place] and [place]. This disclosure is being madepursuant to the Care Everywhere program and may not contain all information available regarding this patient. Last updated 18.[facility] Allergies No known active allergies Medications * [...] season) 2024 DEPRESSION SCREENING 05/03/2024 INFLUENZA VACCINE (#1) 2025 Respiratory Syncytial Virus (RSV) Vaccine Pt: [...] patient's age to complete this topic [place] [address] Care Teams Assisted Living Housekeeper Relationship Specialty Start Date End Date Alicia Helms APRN-AIRCRAFT CYLINDER MECHANIC [address], [place] [address] PCP - General 09/25/20
== END 2024-11-11 09:44 | disposition home or self-care (01) ==
PROVIDERS: PCP Internal Medicine; Visit Provider Nurse Practitioner Adult Health
DX: M47.816 Spondylosis without myelopathy or radiculopathy, lumbar region (principal); M43.16 Spondylolisthesis, lumbar region
CPT/HCPCS: 72148

== ENCOUNTER 2025-01-02 08:27 | Day surgery (SDC) | payer OTHER, SELFPAY ==
[2024-12-21 11:50] VITALS: BMI 25.8
--- NOTE | ~2025-01-02 | XR_ITS ---
EXAM: XR fluoroscopy no charge - 01/02/2025 10:15 CDT History: 64 years old Male with RIGHT L4 TRANSFORAMINAL EPIDURAL STEROID INJ Fluoroscopy time: 7.7 seconds FINDINGS/ IMPRESSION: Multiple fluoroscopic images of nerve root injection.. Reviewed, dictated and finalized at location N.
--- OUTSIDE RECORDS SUMMARY | 2025-01-02 08:33 | XMS_ITS | Clinical Summary ---
Author Organization [facility] Address [address] [place] [address] Care Team Providers Care Retail Key Holder Name Role Phone Park HallAlicia Jackson APRN-FORMING ROLL OPERATOR HEAVY DUTY Primary Care Provid er Source Comments [facility],non-owned Affiliates and Associated Physician Practices is amultiple site organization consisting of ambulatory clinics and hospital sitesin [place], [place], [place] and [place]. This disclosure is being madepursuant to the Care Everywhere program and may not contain all information available regarding this patient. Last updated 18.[facility] Allergies No known active allergies Medications * [...] patient's age to complete this topic Insurance [address] [address] Care Teams Retail Key Holder Relationship Specialty Start Date End Date Alicia Helms APRN-FORMING ROLL OPERATOR HEAVY DUTY [address], [place] [address] PCP - General 09/25/20
--- OUTSIDE RECORDS SUMMARY | 2025-01-02 08:33 | XMS_ITS | Clinical Summary ---
Author Organization [facility] Address [address] [place] [address] Care Team Providers Care Pipe Blanks Cut Off Saw Operator Name Role Phone Unavailable Primary Care Provider [...] up to 10mg History of substance abuse ([facility]) 10/22 Overview (10/22/2014): No street drugs [...] Plan of Treatment Not on file Insurance [facility] MEDICAID - [place] Member Subscriber Plan / Payer (Ef fective 2014-Present) Name:Alin Jackson Relation to Subscriber:Self Name:Alin Jackson Payer ID:[id number] Group ID:[id number] Type:Medicaid Address: [facility] [address] [place] [address]
[2025-01-02 09:00] VITALS: BP 147/80; PULSE 69; RESP 16; TEMP 36.7; O2SAT 98; BMI 27.2
--- NOTE | 2025-01-02 09:04 | WPDHPUPDATE1 ---
History and Physical Update Update Date/Time: 01/02/25 09:04 History and Physical has been reviewed, including an updated exam of the patient. There are NO changes in the patient's condition. Risks, benefits, and alternatives have been discussed and questions answered. Patient agrees to proceed with procedure.
--- NOTE | 2025-01-02 09:05 | P.OP_ITS ---
Procedure Note - Detailed Date of Procedure 01/02/25 Pre-op Diagnosis Lumbar Radiculopathy Post-op Diagnosis Same Procedure Performed Right Lumbar Transforaminal Epidural Steroid Injection under Fluoroscopic Guidance and with Contrast Control at L4-5. Surgeon Dallin Doran MD Anesthesia Local Description of Procedure INFORMED CONSENT: Risks, benefits and alternatives to the procedure were discussed in detail with the patient who expressed explicit understanding and consent to proceed. Patient was informed verbally and in written form regarding the risks associated with the procedure including the low risk of serious infection, bleeding/bruising, allergic reaction, nerve or organ injury, p aralysis, procedural site pain or discomfort, worsening pain and/or mobility, failure to treat and/or disfigurement. The patient expressed explicit understanding and consent to proceed. All materials required for the procedure were available prior to procedure start. Site and side was marked prior to procedure and confirmed in the presence of the patient. PROCEDURE IN DETAIL: The patient was brought to the procedural suite and placed in the prone position. Patient was made comfortable with use of pillows under the head/chest, hips and ankles. Skin overlying the injection site was prepared broadly with ChloraPrep applicator and draped in a sterile manner. Aseptic technique was employed throughout. The endplates of the vertebral body at the site of interest were aligned in the AP view. Ipsilateral oblique angulation was utilized to better visualize the neuroforamen of interest. Local anesthesia was established by infiltration with approximately 5 mL of 0.5% PF lidocaine via a 1-1/2 inch 27-gauge needle. A 22-gauge 3.5 inch Matoe (pencil point) spinal needle was advanced until the needle approached the 6 o'clock position on the pedicle just superior to the exiting nerve root. on the right at L4-5. Lateral view was utilized to confirm appropriate position of the needle tip within the superior and posterior portion of the respective foramen. In an AP view, 1 mL of Omnipaque 300 contrast medium was injected after negative aspiration for CSF, blood or other bodily fluid, showing appropriate neurogram without evidence of intravascular or intrathecal spread of contrast. Digital subtraction imaging was used with an additional 1ml of the same contrast medium to confirm absence of intravascular contrast spread. A 1mL solution containing 5 mg of dexamethasone was injected after negative repeat aspiration. Appropriate spread of the injectate was confirmed with washout of previously injected contrast. No parasthesias were elicited. Needle was removed completely intact without difficulty. Images were saved and documented in the patient chart. Patient's skin was cleaned and sterile bandage applied. The patient tolerated the procedure well. The patient was transported to the recovery area in stable condition where they were observed for an appropriate amount of time prior to discharge, without evidence of complication. The patient was instructed to avoid excessive activity for the next 48 hours, including climbing and frequent use of stairs. Showers only for 48 hours. They were instructed not to drive or operate heavy machinery for 24 hours. They are to monitor for severe headaches, fevers, chills, night sweats, erythema/swelling at the site or any other signs of infection, bleeding/bruising, bowel or bladder changes as well as new pain, weakness or numbness in the upper or lower extremity. Should they notice these changes, they are instructed to call our office immediately or report directly to the nearest Emergency Department if no answer or if after posted office hours. COMPLICATIONS: None COMMENTS: None CONTRAST WASTED: 28 mL Omnipaque 300. STEROID WASTED: 5 mg of dexamethasone. Complications No immediate complications Condition Stable Disposition Same day [facility] Billing Surgery - Charge Forward: Surgery Billing
[2025-01-02] MEDS: LIDOCAINE 1% PF INJ 5 ML VIAL INFILTRATE (10:18)
[2025-01-02 10:21] VITALS: BP 159/77; PULSE 63; RESP 12; O2SAT 98
[2025-01-02] MEDS: LIDOCAINE 2% PF LOCAL INJ 5 ML VIAL INFILTRATE (10:21)
[2025-01-02] MEDS: dexAMETHasone SOD PHOS INJ 10 MG/ML 1 ML VIAL IM (10:22)
[2025-01-02 10:28] VITALS: BP 149/92; PULSE 70; RESP 18; O2SAT 99
== END 2025-01-02 10:40 | disposition home or self-care (01) ==
PROVIDERS: PCP Internal Medicine; Visit Provider Anesthesiology Pain Medicine
PROC: (CPT 64483; principal; 2025-01-02 08:50)
DX: M54.16 Radiculopathy, lumbar region (principal)
CPT/HCPCS: 64483; 99199; J1100

== ENCOUNTER 2025-02-03 09:27 | Outpatient (CLI) | payer OTHER, SELFPAY ==
--- NOTE | ~2025-02-03 | XR_ITS ---
EXAMINATION: XR knee RT min 4V, 02/03/2025 9:35 CDT HISTORY: M25.561 - Pain in right knee, f/u after injection COMPARISON: No comparisons available. Findings: No acute fracture or malalignment. Moderate to severe tricompartmental degenerative changes, small effusion Soft tissues unremarkable. Impression: No acute fracture or malalignment. Reviewed, dictated and finalized at location P. Impression: No acute fracture or malalignment.
--- NOTE | ~2025-02-03 | XR_ITS ---
EXAMINATION: XR shoulder RT min 2V DATE: 02/03/2025 09:58 INDICATION: Right shoulder pain TECHNIQUE: AP internally and externally rotated, AP oblique externally rotated and transscapular Y views of the affected shoulder were obtained. COMPARISON: None FINDINGS: Normal alignment. Old healed fractures of the posterolateral right third-sixth ribs. No acute fracture.Mild glenohumeral and acromioclavicular osteoarthritis. Visual is portions of the lungs are clear. Soft tissues are unremarkable. IMPRESSION: Mild right glenohumeral and acromio clavicular osteoarthritis. 2. Old healed fractures of the posterolateral right third-sixth ribs. No acute osseous abnormality. Reviewed, dictated and finalized at location A.
--- OUTSIDE RECORDS SUMMARY | 2025-02-03 09:33 | XMS_ITS | Clinical Summary ---
Author Organization [facility] Address [address] [place] [address] Care Team Providers Care Consulting Analyst Name Role Phone ProsperAlicia Jackson APRN-ART TEACHER Primary Care Provid er Source Comments [facility],non-owned Affiliates and Associated Physician Practices is amultiple site organization consisting of ambulatory clinics and hospital sitesin [place], [place], [place] and [place]. This disclosure is being madepursuant to the Care Everywhere program and may not contain all information available regarding this patient. Last updated 18.[facility] Allergies No known active allergies Medications * [...] 2012 ZOSTER VACCINE (1 of 2) 2012 DEPRESSION SCREENING 05/03/2024 COVID-19 VACCINE (1 - 2023-2 5 season) 2025 INFLUENZA VACCINE (#1) 2025 Respiratory Syncytial Virus [...] patient's age to complete this topic [place] [address] Care Teams Consulting Analyst Relationship Specialty Start Date End Date Alicia Helms APRN-ART TEACHER [address], [place] [address] PCP - General 09/25/20
== END 2025-02-03 09:28 | disposition home or self-care (01) ==
LOC: ANHIMG 09:30
PROVIDERS: PCP Internal Medicine; Visit Provider Nurse Practitioner Adult Health
DX: M19.011 Primary osteoarthritis, right shoulder (principal); S22.41XD Multiple fractures of ribs, right side, subsequent encounter for fracture with routine healing; X58.XXXD Exposure to other specified factors, subsequent encounter; M25.561 Pain in right knee
CPT/HCPCS: 73030; 73564